=== PATIENT | male | born 1960 | race Caucasian/White ===

== ENCOUNTER → 2021-07-07 | Outpatient (CLI) | payer OTHER | LOC: HEART 5 07-02 08:00 | DX: I25.10 Atherosclerotic heart disease of native coronary artery without angina pectoris (principal); R07.9 Chest pain, unspecified; I27.20 Pulmonary hypertension, unspecified; I08.8 Other rheumatic multiple valve diseases | CPT/HCPCS: 78452; 93306; A9502; J2785 ==